=== PATIENT | female | born 1970 | race Caucasian/White ===

== ENCOUNTER 2017-07-22 14:36 | Emergency (ER) | payer OTHER ==
[~2017-07-22] VITALS: Ht 162.6 cm; Wt 70.3 kg
== END 2017-07-22 21:38 | disposition home or self-care (01) ==
LOC: ER 14:36
DX: H11.32 Conjunctival hemorrhage, left eye (principal); R51 Headache

== ENCOUNTER 2018-08-07 05:31 | Emergency (ER) | payer OTHER ==
[~2018-08-07] VITALS: Ht 160 cm; Wt 69.9 kg
== END 2018-08-07 13:04 | disposition home or self-care (01) ==
LOC: ER 05:31
DX: R00.2 Palpitations (principal)

== ENCOUNTER 2020-05-25 14:50 | Emergency (ER) | payer OTHER ==
[~2020-05-25] VITALS: Ht 157.5 cm; Wt 61.2 kg
[2020-05-25] MEDS ORDERED: CELEXA10 MG (15:46)
[2020-05-25] MEDS ORDERED: XANAX0.25 MG PO (15:59)
== END 2020-05-25 16:25 | disposition home or self-care (01) ==
LOC: ER 14:50
DX: F41.0 Panic disorder [episodic paroxysmal anxiety] (principal)